=== PATIENT | male | born 1990 | race Caucasian/White ===

== ENCOUNTER 2023-03-18 16:21 | Emergency (ER) | payer OTHER, SELFPAY ==
[2023-03-18 16:30] VITALS: BP 133/92; PULSE 84; RESP 16; TEMP 37.4; O2SAT 100
[2023-03-18] MEDS: TETANUS,DIPHTHERIA,AC PERTUSSIS ADULT (0.5 ML) BOOSTRIX IM (16:42)
[2023-03-18 16:45] VITALS: BP 137/75
--- NOTE | 2023-03-18 17:00 | ED.WOUNDLAC ---
HPI - Wound/Laceration General Chief Complaint: Wound/Laceration Stated Complaint: fishing Hook in right thumb Time Seen by Provider: 03/18/23 16:50 Source: patient, family, RN notes reviewed and old records reviewed Mode of arrival: ambulatory Limitations: no limitations History of Present Illness HPI narrative: 32 year old male accompanied by significant other presents to express care with complaints of getting fish hook stuck in his right thumb about 10 minutes prior to arrival when he was taking fishing pools out of vehicle.Patient reports that his tetanus is not up to date. Patient rates his pain 6/10 described as throbbing. Patient is right hand dominant. Onset (ago): minute(s) (10 minutes prior to arrival) Location: other (right thumb) Place: outdoors Patient tetanus UTD: No Related Data Allergies Allergy/AdvReac Type Severity Reaction Status Date / Time No Known Allergies Allergy Verified 03/18/23 16:49 Review of Systems Review of Systems: CONSTITUTIONAL: Denies fever, chills, or sweats. EYES: Denies visual changes, redness, or discharge. ENT: Denies rhinorrhea, congestion, sore throat, or otalgia. CARDIOVASCULAR: Denies chest pain, palpitations, or edema. RESPIRATORY: Denies cough or dyspnea. GASTROINTESTINAL: Denies abdominal pain, nausea, vomiting, or diarrhea. GENITOURINARY: Denies dysuria or hematuria. SKIN: Denies rash or itching.positive for fish hook istuck n the sr aspect of his right thumb MUSCULOSKELETAL: Denies back pain, joint pain, or myalgia. NEUROLOGIC: Denies headache, numbness, or weakness. PSYCHIATRIC: Denies anxiety or depression. All systems reviewed & are unremarkable except as noted in HPI and below PMFSH Social History Social History (Updated 03/20/23 @ 12:08 by She Green NP) Smoking packs per day: 1 Smoking cigarettes per day: 20.0 Smoking status: Current every day smoker Tobacco type: cigarettes Alcohol intake: current Alcohol use details: social Substance use: current Substance use type: marijuana Living arrangements: with family Gender identity (if verbalized by the patient): Male Comments At time of signature, agree with nursing past medical, surgical, social and family history. There is no relevant family history pertinent to the presenting complaint Exam Narrative: GENERAL: Well-appearing, well-nourished, and in no acute distress. HEAD: Normocephalic, atraumatic. EYES: PERRLA and EOMI. ENT: Nares clear, no rhinorrhea or epistaxis. Mucous membranes moist. NECK: Supple.no lymphadenopathy CHEST: Clear to auscultation. No respiratory distress.SAO2 100% on room air HEART: Regular rate and rhythm. No murmur heard. Normal peripheral pulses. ABDOMEN: Soft, nontender, nondistended, normal active bowel sounds. EXTREMITIES: Normal range of motion. No edema. SKIN: Warm, dry, no rash. fish hook one yoni stuck in sr aspect of right thumb, see procedure note, circulation and sensation and mobility intact to right thumb. NEURO: No focal deficits. Alert and oriented x3. Course Course Emergency Course: Patient is aware of diagnosis, understands and agrees to treatment plan.? Anticipatory guidance given.? Patient agrees to follow-up as directed and is aware of reasons to seek care at the emergency department. Portions of this record may have been created with voice recognition software Level of Care: Express Care Visit Vital Signs Vital signs: Vital Signs Temperature 37.4 C 03/18/23 16:30 Pulse Rate 84 03/18/23 16:30 Respiratory Rate 16 03/18/23 16:30 Blood Pressure 133/92 H 03/18/23 16:30 Pulse Oximetry 100 03/18/23 16:30 Oxygen Delivery Room Air 03/18/23 16:30 Temperature 37.4 C 03/18/23 16:30 Pulse Rate 84 03/18/23 16:30 Respiratory Rate 16 03/18/23 16:30 Blood Pressure 137/75 03/18/23 16:45 Pulse Oximetry 100 03/18/23 16:30 Oxygen Delivery Room Air 03/18/23 16:30 Reviewed Procedures Foreig
== END 2023-03-18 17:20 | disposition home or self-care (01) ==
PROVIDERS: Emergency Provider Registered Nurse
DX: S61.041A Puncture wound with foreign body of right thumb without damage to nail, initial encounter (principal); X58.XXXA Exposure to other specified factors, initial encounter; Z23 Encounter for immunization; F17.210 Nicotine dependence, cigarettes, uncomplicated; F12.90 Cannabis use, unspecified, uncomplicated
CPT/HCPCS: 10120; 90471; 90715; 99213; G0463